=== PATIENT | male | born 1980 | race Caucasian/White ===

== ENCOUNTER 2018-02-23 05:33 | Inpatient (IN) | payer MEDICAID ==
[~2018-02-23] VITALS: Ht 177.8 cm; Wt 110.8 kg
[2018-02-23 05:38] VITALS: Ht 177.8 cm; Wt 110.8 kg
[2018-02-23 07:02] LABS: CALCIUM 8.8 mg/dL (8.5-10.1); CARBON DIOXIDE 26.5 mmol/L (21-32); CHLORIDE SERUM 105 mmol/L (98-107); CREATININE SERUM 1.1 mg/dL (0.7-1.3); GFR1 > 60 mL/min; GLUCOSE SERUM 150 mg/dL (74-106); POTASSIUM SERUM 4.4 mmol/L (3.5-5.1); SODIUM SERUM 139 mmol/L (136-145)
[2018-02-23 07:06] LABS: ALBUMIN 3.9 g/dL (3.4-5.0); ALKALINE PHOSPHATASE 97 U/L (46-116); ALT/SGPT 214 U/L (16-63); AST/SGOT 85 U/L (15-37); BILIRUBIN TOTAL 0.65 mg/dL (0.20-1.00); LIPASE 118 IU/L (73-393); TOTAL PROTEIN, SERUM 7.9 g/dL (6.4-8.2)
[2018-02-23 07:08] LABS: BASOPHIL % 0.4 % (0-2); PLATELET COUNT 184 x10^3mcL (130-400); RED CELL DISTRIBUTION WIDTH 13.1 % (11.5-14.5)
[2018-02-23 09:47] LABS: CHOLESTEROL/HDL RATIO 4.8; MAGNESIUM 1.9 mg/dL (1.8-2.4); PHOSPHOROUS 3.1 mg/dL (2.5-4.9); T3 TOTAL 1.68 ng/mL
[2018-02-23 10:02] LABS: FREE T4 1.19 ng/dL (0.76-1.46); FREE THYROXINE INDEX 3.3 ug/dL (1.4-4.5)
[2018-02-23 14:35] VITALS: BP 111/77
[2018-02-23 17:47] VITALS: BP 122/71
[2018-02-23 20:24] LABS: UA SPECIFIC GRAVITY 1.015 (1.005-1.035); microscopic required? YES; urine erythrocyte TRACE (NEGATIVE)
[2018-02-23 20:27] VITALS: BP 117/71
[2018-02-23 20:30] LABS: AMPHETAMINE QUAL UR NONE DETECTED (See below)
[2018-02-24 04:50] VITALS: BP 112/76
[2018-02-24 07:07] LABS: BASOPHIL % 0.5 % (0-2); PLATELET COUNT 186 x10^3mcL (130-400); RED CELL DISTRIBUTION WIDTH 12.9 % (11.5-14.5)
[2018-02-24 07:15] LABS: CALCIUM 8.6 mg/dL (8.5-10.1); CARBON DIOXIDE 28.5 mmol/L (21-32); CHLORIDE SERUM 106 mmol/L (98-107); GFR1 > 60 mL/min; GLUCOSE SERUM 92 mg/dL (74-106); MAGNESIUM 2.3 mg/dL (1.8-2.4); PHOSPHOROUS 3.9 mg/dL (2.5-4.9); POTASSIUM SERUM 4.3 mmol/L (3.5-5.1); SODIUM SERUM 143 mmol/L (136-145)
[2018-02-24 11:10] VITALS: BP 118/78
[2018-02-24 12:30] VITALS: BP 122/79
[2018-02-24 16:55] VITALS: BP 106/58
[2018-02-24 20:40] VITALS: BP 118/69
[2018-02-25 05:22] VITALS: BP 104/69
[2018-02-25 07:13] LABS: ALKALINE PHOSPHATASE 70 U/L (46-116); ALT/SGPT 135 U/L (16-63); AST/SGOT 52 U/L (15-37); BILIRUBIN TOTAL 1.4 mg/dL (0.20-1.00); CALCIUM 8.3 mg/dL (8.5-10.1); CARBON DIOXIDE 28.2 mmol/L (21-32); CHLORIDE SERUM 101 mmol/L (98-107); GFR1 > 60 mL/min; GLUCOSE SERUM 109 mg/dL (74-106); PHOSPHOROUS 3.5 mg/dL (2.5-4.9); POTASSIUM SERUM 4.1 mmol/L (3.5-5.1); SODIUM SERUM 139 mmol/L (136-145); TOTAL PROTEIN, SERUM 7.1 g/dL (6.4-8.2)
[2018-02-25 07:19] LABS: ALBUMIN 3.3 g/dL (3.4-5.0)
[2018-02-25 07:28] LABS: BASOPHIL % 0.3 % (0-2); PLATELET COUNT 194 x10^3mcL (130-400); RED CELL DISTRIBUTION WIDTH 12.8 % (11.5-14.5)
[2018-02-25 08:46] VITALS: BP 113/77
[2018-02-25 13:30] VITALS: BP 113/77
[2018-02-25 16:10] VITALS: BP 122/69
[2018-02-25 21:12] VITALS: BP 119/74
[2018-02-26 05:01] VITALS: BP 133/85
[2018-02-26 06:49] LABS: BASOPHIL % 0.4 % (0-2); PLATELET COUNT 205 x10^3mcL (130-400); RED CELL DISTRIBUTION WIDTH 12.7 % (11.5-14.5)
[2018-02-26 07:00] LABS: ALBUMIN 3.4 g/dL (3.4-5.0); ALKALINE PHOSPHATASE 72 U/L (46-116); ALT/SGPT 149 U/L (16-63); AST/SGOT 71 U/L (15-37); BILIRUBIN DIRECT 0.23 mg/dL (0.0-0.2); BILIRUBIN TOTAL 1.05 mg/dL (0.20-1.00); CALCIUM 8.8 mg/dL (8.5-10.1); CHLORIDE SERUM 102 mmol/L (98-107); CREATININE SERUM 1.1 mg/dL (0.7-1.3); GFR1 > 60 mL/min; GLUCOSE SERUM 108 mg/dL (74-106); MAGNESIUM 2.1 mg/dL (1.8-2.4); PHOSPHOROUS 3.8 mg/dL (2.5-4.9); POTASSIUM SERUM 4.9 mmol/L (3.5-5.1); SODIUM SERUM 137 mmol/L (136-145); TOTAL PROTEIN, SERUM 7.4 g/dL (6.4-8.2)
[2018-02-26 09:34] VITALS: BP 126/77
[2018-02-26] MEDS ORDERED: MOT800 PO (11:47)
[2018-02-26 17:32] VITALS: BP 127/71
[2018-02-26 20:00] VITALS: BP 126/72
== END 2018-02-26 20:40 | disposition home or self-care (01) | DRG 263 ==
LOC: ED 05:33 → MU 09:19 → DU 09:19 → MU 02-24 21:00
PROVIDERS: Emergency Medicine; Family Medicine; Internal Medicine; Surgery
PROC: 0FT44ZZ Resection of Gallbladder, Percutaneous Endoscopic Approach (ICD-10-PCS; principal; 2018-02-24 07:30)
DX: K80.00 Calculus of gallbladder with acute cholecystitis without obstruction (principal); K56.7 Ileus, unspecified; E78.5 Hyperlipidemia, unspecified; E80.6 Other disorders of bilirubin metabolism; J98.11 Atelectasis; Z68.34 Body mass index [BMI] 34.0-34.9, adult
CPT/HCPCS: 82962; 83880; 84439; 94150; C1758; J0330; J1170; J1885; J2175; J2250; J2270; J2405; J2543; J2704; J3010; J3490; J7030; J7042; J7050; J7120; Q0092; Q0162; Q9967

== ENCOUNTER 2019-07-23 12:25 | Emergency (ER) | payer MEDICAID ==
[~2019-07-23] VITALS: Ht 177.8 cm; Wt 109.8 kg
[~2019-07-23 12:25] MED LIST: MOT800 PO
[2019-07-23 12:38] VITALS: Ht 177.8 cm; Wt 109.8 kg
[2019-07-23 12:53] LABS: BASOPHIL % 0.8 % (0-2); PLATELET COUNT 225 x10^3mcL (130-400); RED CELL DISTRIBUTION WIDTH 12.7 % (11.5-14.5)
[2019-07-23 13:23] LABS: CALCIUM 8.9 mg/dL (8.5-10.1); CHLORIDE SERUM 103 mmol/L (98-107); CREATININE SERUM 0.8 mg/dL (0.7-1.3); GFR1 > 60 mL/min; GLUCOSE SERUM 133 mg/dL (74-106); POTASSIUM SERUM 4.2 mmol/L (3.5-5.1); SODIUM SERUM 140 mmol/L (136-145)
[2019-07-23 13:27] LABS: ALBUMIN 3.7 g/dL (3.4-5.0); ALKALINE PHOSPHATASE 116 U/L (46-116); ALT/SGPT 177 U/L (16-63); AST/SGOT 86 U/L (15-37); BILIRUBIN TOTAL 0.47 mg/dL (0.20-1.00)
[2019-07-23 13:33] LABS: TOTAL PROTEIN, SERUM 8.3 g/dL (6.4-8.2)
[2019-07-23 17:49] VITALS: BP 131/69
== END 2019-07-23 17:30 | disposition home or self-care (01) ==
LOC: ED 12:25
DX: K57.30 Diverticulosis of large intestine without perforation or abscess without bleeding (principal); Z90.49 Acquired absence of other specified parts of digestive tract
CPT/HCPCS: 36415